=== PATIENT | female | born 1980 | race Caucasian/White ===

== ENCOUNTER → 2020-11-03 10:17 | Outpatient (BNVA) | payer OTHER, SELFPAY | PROVIDERS: Visit Provider Obstetrics & Gynecology | DX: R30.0 Dysuria (principal) | CPT/HCPCS: 81000 ==

== ENCOUNTER → 2021-07-24 16:29 | Outpatient (BNVA) | payer OTHER, SELFPAY | PROVIDERS: Visit Provider Obstetrics & Gynecology | DX: Z12.4 Encounter for screening for malignant neoplasm of cervix (principal); R29.90 Unspecified symptoms and signs involving the nervous system | CPT/HCPCS: 87624 ==

== ENCOUNTER 2022-01-01 07:07 | Outpatient (CLI) | payer OTHER, SELFPAY ==
--- NOTE | 2022-01-01 07:17 | MR_ITS ---
WS: [id number] MRI CERVICAL SPINE with and without contrast. HISTORY: PARESTHESIA/MUSCLE TWITCH/TINNITIS COMPARISON: None available. Technique: Multiplanar, multisequence noncontrast imaging of the cervical spine. Pre and post contras t imaging. MultiHance 10 mL IV. Mild straightening reversal the cervical lordosis. Reversal centered at C4-5. Signal within the cervical cord is normal. Visualized posterior fossa is unremarkable. Craniocervical junction, C1 and C2 relationship, odontoid process and soft tissues are normal. C6 hem angioma. No signal abnormalities within the cord. No enhancement. No edema or atrophy of the cord. Posterior f oliva is negative. C2-C3: Normal. C3-C4: Normal. C4-C5: Normal. C5-C6: Normal. C6-C7: Normal. C7-T1: Normal. Paraspinal soft tissue are normal. MR/MR cervical spine wo/w [id number] IMPRESSION: 1. Mild straightening or slight reversal the normal cervical lordosis. 2. No demyelinating lesions identified within the cord. No areas of abnormal e nhancement, atrophy or enlargement. 3. No significant central or foraminal stenosis.
--- NOTE | 2022-01-01 07:21 | MR_ITS ---
WS: [id number] MRI BRAIN WITH AND WITHOUT CONTRAST HISTORY: Paresthesia/MUSCLE TWITCH/TINNITUS,LEFT EAR COMPARISON: None available. TECHNIQUE: Multiplanar imaging performed through the brain with MultiHance 10 ml's IV. No acute infarcts are seen. Tracey-white matter differentiation is well preserved. No pericallosal or p eriventricular white matter abnormalities to suggest demyelination. No white matter lesions in the te mporal lobes. No prior infarcts. There are a few very minimal T2 and FLAIR signal hyperintensities wh ich are very small and related to small vessel ischemic type changes. No susceptibility artifacts or prior lacunar infarcts. Ventricles and extra-axial spaces are normal. Clivus and pituitary gland are normal. Visualized posterior fossa and brainstem are also normal. Postcontrast images are negative for masses or vascular malformations. Dural venous sinuses are normal. Paranasal sinuses: Well aerated with no significant disease. Mastoid air cells: Normal. Calvarium and scalp: Normal. MR/MR head wo/w con [id number] IMPRESSION: 1. No white matter demyelinating lesions. 2. No prior infarct or hemorrhage. 3. Very minimal small vessel ischemic type changes.
[2022-01-01] MEDS: gadobenate dimeglumine 20 mL vial IV (09:44)
== END 2022-01-01 07:08 | disposition home or self-care (01) ==
PROVIDERS: Family Provider Family Medicine; PCP Family Medicine; Visit Provider Psychiatry & Neurology Neurology
DX: R20.0 Anesthesia of skin (principal); R25.3 Fasciculation; H93.12 Tinnitus, left ear
CPT/HCPCS: 70553; 72156